=== PATIENT | male | born 1950 | race Caucasian/White ===

== ENCOUNTER 2022-03-05 08:45 | Observation (INO) | payer MEDICARE, MEDICAID ==
[~2022-03-05] VITALS: Ht 180.3 cm; Wt 136.4 kg
[2022-03-05] MEDS ORDERED: ondansetron/PF 4mg/2ml inj IV ONE (09:10)
[2022-03-05] MEDS ORDERED: fentaNYL/PF 50MCG/1 ML 2ML syringe IV ONE ×2 (09:10→11:05)
[2022-03-05] MEDS ORDERED: iohexol 350MG/ML 100ml bottle IV ONE (09:58)
[2022-03-05 10:32] LABS: BASOPHILS # (AUTO) 0.1 X10'3 (0-0.2); BASOPHILS % (AUTO) 0.5 % (0-1); EOSINOPHILS # (AUTO) 0.2 X10'3 (0-0.9); EOSINOPHILS % (AUTO) 1.6 % (0-6); HEMATOCRIT 47.8 % (42.0-52.0); HEMOGLOBIN 16.1 g/dl (14.0-17.9); LYMPHOCYTES # (AUTO) 1.1 X10'3 (1.1-4.8); LYMPHOCYTES % (AUTO) 10.7 % (21-51); MEAN CORPUSCULAR HEMOGLOBIN 30.5 PG (27.0-31.0); MEAN CORPUSCULAR HGB CONC 33.6 g/dL (33.0-36.5); MEAN CORPUSCULAR VOLUME 90.9 FL (78-98); MEAN PLATELET VOLUME 8.5 FL (7.4-10.4); MONOCYTES # (AUTO) 0.8 X10'3 (0-0.9); MONOCYTES % (AUTO) 7.2 % (2-12); NEUTROPHILS # (AUTO) 8.3 X10'3 (1.8-7.7); PLATELET COUNT 106 X10'3 (140-440); RED BLOOD COUNT 5.26 X10'6 (4.70-6.10); RED CELL DISTRIBUTION WIDTH 14.2 % (11.5-14.5); WHITE BLOOD COUNT 10.4 X10'3 (4.5-11.0)
[2022-03-05 10:53] LABS: ALANINE AMINOTRANSFERASE 22 U/L (12-78); ALBUMIN 3.3 G/DL (3.4-5.0); ALBUMIN/GLOBULIN RATIO 0.9 (1.1-1.5); ALKALINE PHOSPHATASE 96 IU/L (46-116); ANION GAP 8 (8-16); ASPARTATE AMINO TRANSFERASE 19 U/L (10-37); BILIRUBIN,TOTAL 3.6 MG/DL (0.1-1.0); BLOOD UREA NITROGEN 16 MG/DL (7-18); BUN/CREATININE RATIO 18.4 (5.4-32.0); CALCIUM 8.9 MG/DL (8.5-10.1); CHLORIDE 103 MMOL/L (99-107); CREATININE 0.87 MG/DL (0.60-1.10); GLUCOSE 123 MG/DL (70-104); POTASSIUM 3.7 MMOL/L (3.5-5.1); SODIUM 138 MMOL/L (135-145); TOTAL CARBON DIOXIDE 26.9 MMOL/L (24-32); TOTAL PROTEIN 6.9 G/DL (6.4-8.2); eGFR 87 ML/MIN
--- NOTE | 2022-03-05 11:00 | NUR ---
PT C/O 02/20 LOWER BACK PAIN ,NOTIFIED [employer]IC [employer] ,VERBAL ORDER TO GIVE 50 MCG OF FENTNYL IV ONCE.
--- NOTE | 2022-03-05 11:38 | NUR ---
PT BACK FROM CT SCAN,SIGNIFICANT OTHER WAITING IN ROOM.
[2022-03-05] MEDS ORDERED: morphine 10mg/ml inj. IV ONE (12:30)
[2022-03-05] MEDS ORDERED: ondansetron/PF 4mg/2ml inj IV PRN (13:20)
[2022-03-05] MEDS ORDERED: magnesium hydroxide 30ml (MOM) UD suspension PO PRN (13:20)
[2022-03-05] MEDS ORDERED: HYDROcodone/acetaminophen 10/325mg tab PO PRN (13:20)
[2022-03-05] MEDS ORDERED: acetaminophen 325mg tablet PO PRN ×2 (13:20→15:55)
[2022-03-05] MEDS ORDERED: HYDROcodone/acetaminophen 5mg/325mg tablet PO PRN (13:20)
[2022-03-05] MEDS ORDERED: HYDROmorphone inj. 0.5 MG/0.5 ML DISP.SYRIN IV PRN (13:20)
[2022-03-05] MEDS ORDERED: acetaminophen 650mg rectal suppository RC PRN (13:20)
[2022-03-05] MEDS ORDERED: ondansetron 4mg rapidly disintigrating tab PO PRN (13:20)
[2022-03-05] MEDS ORDERED: PERFLUTREN PROTEIN-A MICROSPHR (Optison) 0.22 MG/ML 3ML VIAL IV PRN (13:20)
[2022-03-05] MEDS ORDERED: HYDROmorphone/PF 0.2 MG/ML SYRINGE IV PRN (13:20)
[2022-03-05] MEDS ORDERED: potassium Cl 20 mEq SR tablet PO PRN ×2 (13:20)
[2022-03-05] MEDS ORDERED: mag hydrox/Alum hydrox/simeth 30ml oral suspension PO PRN (13:20)
[2022-03-05] MEDS ORDERED: magnesium Cl slow-release 64mg tablet PO PRN (13:20)
[2022-03-05] MEDS ORDERED: potassium Cl 40MEQ/1/2NS 520ml 520 ML IV PRN (13:20)
[2022-03-05] MEDS ORDERED: magnesium 4gm in 100ml NS 100 ML IV PRN (13:20)
[2022-03-05 13:40] LABS: MAGNESIUM 2.1 MG/DL (1.5-2.4); POTASSIUM 3.9 MMOL/L (3.5-5.1)
--- NOTE | 2022-03-05 14:17 | NUR ---
HOT DIP GALVANIZER AT BEDSIDE.
--- NOTE | 2022-03-05 15:19 | NUR ---
DR HUANG AT BEDSIDE .
[2022-03-05] MEDS: ketorolac tromethamine 15mg/ml inj. IV PRN (15:55)
--- NOTE | 2022-03-05 15:59 | NUR ---
CALLED PHARMACY TO GET THE DILAUDID READY FOR RATTLESNAKE FARMER .
[2022-03-05] MEDS: HYDROmorphone 1 mg/ml syringe IV PRN (16:17)
[2022-03-05] MEDS ORDERED: ASPI-611 PO (16:32)
[2022-03-05] MEDS ORDERED: ATOR-2 PO (16:32)
[2022-03-05] MEDS ORDERED: NITR0.4T51 SL (16:32)
[2022-03-05] MEDS ORDERED: CARV-50 PO (16:32)
[2022-03-05] MEDS ORDERED: LOSA25TA41 PO (16:32)
[2022-03-05] MEDS ORDERED: nitroGLYCERIN 0.4mg SUBLingual tab SL PRN (16:55)
--- NOTE | 2022-03-05 17:07 | NUR ---
UNABLE TO GET THE LSO BRACE FOR THE PT PT NEED XL SIZE BRACE WHICH IS NOT AVAILABLE IN OUR ER ,MATERIAL ,ICU OR ORTHO CART .BLENDING TANK HELPERKASIA WYNN WAS WORKING ON FINDING THE BRACE,WILL PASS THE INFORMATION TO NIGHT RN.
[2022-03-05] MEDS: K and/or MAG REPLACEMENT MC SCH (20:00)
[2022-03-05] MEDS: docusate sod 100mg capsule PO SCH (20:00)
[2022-03-05] MEDS: HYDROmorphone inj. 0.5 MG/0.5 ML DISP.SYRIN IV PRN (21:52)
[2022-03-05] MEDS: losartan 25mg tablet PO SCH (21:53)
[2022-03-05] MEDS: carVEDilol 12.5mg tablet PO SCH (21:53)
[2022-03-06] MEDS: HYDROmorphone 1 mg/ml syringe IV PRN (02:20)
[2022-03-06] MEDS: HYDROmorphone inj. 0.5 MG/0.5 ML DISP.SYRIN IV PRN (04:31)
[2022-03-06 06:59] LABS: BASOPHILS % (AUTO) 0.5 % (0-1); EOSINOPHILS # (AUTO) 0.2 X10'3 (0-0.9); EOSINOPHILS % (AUTO) 2.6 % (0-6); HEMATOCRIT 46.6 % (42.0-52.0); HEMOGLOBIN 15.6 g/dl (14.0-17.9); LYMPHOCYTES # (AUTO) 1.2 X10'3 (1.1-4.8); LYMPHOCYTES % (AUTO) 14.1 % (21-51); MEAN CORPUSCULAR HEMOGLOBIN 30.3 PG (27.0-31.0); MEAN CORPUSCULAR HGB CONC 33.5 g/dL (33.0-36.5); MEAN CORPUSCULAR VOLUME 90.5 FL (78-98); MEAN PLATELET VOLUME 8.4 FL (7.4-10.4); MONOCYTES # (AUTO) 0.8 X10'3 (0-0.9); MONOCYTES % (AUTO) 9.5 % (2-12); NEUTROPHILS # (AUTO) 6.4 X10'3 (1.8-7.7); NEUTROPHILS % (AUTO) 73.3 % (42-75); PLATELET COUNT 100 X10'3 (140-440); RED BLOOD COUNT 5.15 X10'6 (4.70-6.10); RED CELL DISTRIBUTION WIDTH 14.1 % (11.5-14.5); WHITE BLOOD COUNT 8.7 X10'3 (4.5-11.0)
--- NOTE | 2022-03-06 07:01 | NUR ---
Pt sleeping at this time.No distress noted ,Will cont to monitor.
[2022-03-06 07:27] LABS: ALANINE AMINOTRANSFERASE 21 U/L (12-78); ALBUMIN/GLOBULIN RATIO 0.9 (1.1-1.5); ALKALINE PHOSPHATASE 92 IU/L (46-116); ANION GAP 7 (8-16); ASPARTATE AMINO TRANSFERASE 18 U/L (10-37); BILIRUBIN,TOTAL 4.1 MG/DL (0.1-1.0); BLOOD UREA NITROGEN 17 MG/DL (7-18); BUN/CREATININE RATIO 17.7 (5.4-32.0); CALCIUM 8.7 MG/DL (8.5-10.1); CHLORIDE 101 MMOL/L (99-107); CREATININE 0.96 MG/DL (0.60-1.10); GLUCOSE 111 MG/DL (70-104); MAGNESIUM 2.1 MG/DL (1.5-2.4); POTASSIUM 3.6 MMOL/L (3.5-5.1); SODIUM 136 MMOL/L (135-145); TOTAL CARBON DIOXIDE 27.9 MMOL/L (24-32); TOTAL PROTEIN 6.3 G/DL (6.4-8.2); eGFR 77 ML/MIN
[2022-03-06] MEDS ORDERED: aspirin 81mg, enteric-coated 1 TAB TABLET.DR PO SCH (08:00)
[2022-03-06] MEDS ORDERED: atorvastatin 20mg tablet PO SCH (08:00)
[2022-03-06] MEDS: K and/or MAG REPLACEMENT MC SCH (08:00)
[2022-03-06] MEDS: docusate sod 100mg capsule PO SCH (08:49)
[2022-03-06] MEDS: losartan 25mg tablet PO SCH (08:51)
[2022-03-06] MEDS: carVEDilol 12.5mg tablet PO SCH (08:51)
[2022-03-06 09:00] VITALS: BP 128/69
--- NOTE | 2022-03-06 11:10 | NUR ---
PAGE SENT TO [facility] NURSE.... [address] FLORES: PATIENT NEEDS TO BE DARTED WHEN YOU GET A CHANCE! THANKS :)
[2022-03-06] MEDS: ketorolac tromethamine 15mg/ml inj. IV PRN (11:11)
[2022-03-06 14:33] VITALS: BP 118/71
--- NOTE | 2022-03-06 16:15 | NUR ---
PAGER ID: [phone] MESSAGE: [address] Desmond Morejon: patient leaving AMA. he has his brace that PT put on him. thanks, [phone]
--- NOTE | 2022-03-06 16:18 | NUR ---
patient upset with PT, started yelling demanding to leave AMA. His is at bedside and she left to pull the car up. IV removed, processing rep removed, all belongings taken from room. notified.
== END 2022-03-06 16:25 | disposition left against medical advice (07) ==
LOC: ER 08:46 → ED HOLD 13:25 → EDBEDREQ 20:16 → SUR 3N 03-06 07:45
PROVIDERS: ADMIT Family Medicine; ATTEND Family Medicine
DX: S32.029A Unspecified fracture of second lumbar vertebra, initial encounter for closed fracture (principal); S06.0XAA Concussion with loss of consciousness status unknown, initial encounter; I25.10 Atherosclerotic heart disease of native coronary artery without angina pectoris; I10 Essential (primary) hypertension; E78.5 Hyperlipidemia, unspecified; E11.9 Type 2 diabetes mellitus without complications; V98.8XXA Other specified transport accidents, initial encounter; Y93.89 Activity, other specified; Y92.89 Other specified places as the place of occurrence of the external cause; Z95.1 Presence of aortocoronary bypass graft; Z88.0 Allergy status to penicillin; Z79.899 Other long term (current) drug therapy
CPT/HCPCS: 36415; 70450; 70496; 70498; 72131; 80053; 83735; 84132; 84484; 85025; 93308; 93880; 96374; 96375; 96376; 97161; 97530; 99285; G0378; J1170; J1885; J2274; J2405; J3010; J3490; Q9967